=== PATIENT | female | born 1995 | race Caucasian/White ===

== ENCOUNTER 2016-06-23 00:46 | Emergency (ER) | payer OTHER ==
[~2016-06-23] VITALS: Ht 170.2 cm; Wt 67.0 kg
[2016-06-23 00:50] VITALS: TEMP 36.9; Ht 170.2 cm; Wt 67.0 kg
[2016-06-23] MEDS ORDERED: XYLOCAINE 1%/SOD BICARB 20 ML VIAL INFIL ONE (01:15)
[2016-06-23] MEDS ORDERED: IBUPROFEN 600 MG TAB PO STA (01:59)
[2016-06-23] MEDS ORDERED: ACETAMINOPHEN 500 MG TAB PO STA (01:59)
[2016-06-23 02:11] VITALS: BP 121/82; PULSE 104; O2SAT 100
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
== END 2016-06-23 02:12 | disposition home or self-care (01) ==
LOC: C.EDB 00:48
DX: S01.01XA Laceration without foreign body of scalp, initial encounter (principal); W20.8XXA Other cause of strike by thrown, projected or falling object, initial encounter; Y92.89 Other specified places as the place of occurrence of the external cause

== ENCOUNTER 2016-07-02 09:41 | Emergency (ER) | payer OTHER ==
[~2016-07-02] VITALS: Ht 170.2 cm; Wt 67.4 kg
[2016-07-02 09:50] VITALS: BP 110/72; PULSE 94; TEMP 36.7; O2SAT 100; Ht 170.2 cm; Wt 67.4 kg
--- NOTE | 2016-07-02 10:02 | EMERGENCY ROOM VISIT NOTE ---
History First contact with patient: 09:54 Chief Complaint: SUTURE/STAPLE REMOVAL Stated Complaint: REMOVAL OF STITCHES Nursing Triage Summary: Needs to have the trixie on the right side of her head removed. She relates that she gets intermittent headache. History of Present Illness The patient is a 20 year old female who presents to the Emergency Room for staple removal from a scalp laceration that was repaired in our facility 9 days ago. The patient does report intermittent headaches, but denies any other significant symptoms. Review of Systems Noncontributory Past Medical/Surgical History All documented on previous visit Social History Smoking Status: Never Smoker Current/Historical Medications No Active Prescriptions or Reported Meds Allergies Coded Allergies: No Known Allergies (Unverified , 06/23/16) Physical Exam Vital Signs Date Time Temp Pulse Resp B/P Pulse Ox O2 Delivery O2 Flow Rate FiO2 07/02/16 09:50 36.7 94 20 110/72 100 Room Air Physical Exam HEENT: Examination shows a well-healed scalp laceration. All trixie were removed without any complications. Medical Decision & Procedures ED Course The patient was provided additional verbal wound care instructions. She was also advised that she may have a mild concussion, and encouraged to limit her activities until headaches improve. She may follow-up with [facility] as needed. Return to the emergency department for any progressively worsening headaches. The patient was happy with plan care, and denied any significant discomfort at the time of discharge. Medical Decision Impression Primary Impression: Encounter for removal of trixie Additional Impression: Concussion Departure Information Prescriptions No Active Prescriptions or Reported Meds Referrals No Doctor, Assigned (PCP) Patient Instructions [facility] Problem Qualifiers
== END 2016-07-02 10:05 | disposition home or self-care (01) ==
LOC: C.EDB 09:42 → C.EDA 10:05
DX: S01.01XD Laceration without foreign body of scalp, subsequent encounter (principal); X58.XXXD Exposure to other specified factors, subsequent encounter; S06.0X9A Concussion with loss of consciousness of unspecified duration, initial encounter